=== PATIENT | female | born 1995 | race Hispanic/Latino ===

== ENCOUNTER 2018-04-17 03:01 | Emergency (ER) | payer OTHER ==
[~2018-04-17] VITALS: Ht 157.5 cm; Wt 59.0 kg
[2018-04-17] MEDS ORDERED: DONNATAL/LIDOCAINE/MAALOX 30 ML SUSP PO ONE (03:30)
--- NOTE | 2018-04-17 04:14 | Diagnostic Imaging Report ---
EXAMINATION: CXR 1 VEW - HOPD INDICATION: Chest pressure. COMPARISON: None FINDINGS: AP view TUBES and LINES: None. LUNGS: Lungs are well inflated. Lungs are clear. There is no evidence of pneumonia or pulmonary edema. PLEURA: No pleural effusion or pneumothorax. HEART AND MEDIASTINUM: The cardiomediastinal silhouette is unremarkable. BONES AND SOFT TISSUES: No acute osseous lesion. Soft tissues are unremarkable. UPPER ABDOMEN: No free air under the diaphragm. IMPRESSION: No acute thoracic abnormality. Signed by: DR. Kayden Luz MD on 04/17/2018 4:11 AM
== END 2018-04-17 08:05 | disposition home or self-care (01) ==
LOC: ER 03:01 → FSED 08:05
DX: R07.89 Other chest pain (principal); R06.00 Dyspnea, unspecified
CPT/HCPCS: 71045; 80048; 82553; 84484; 85025; 85379; 93005; 99283

== ENCOUNTER 2018-08-01 22:19 | Emergency (ER) | payer OTHER ==
[~2018-08-01] VITALS: Ht 157.5 cm; Wt 59.0 kg
--- OUTSIDE RECORDS SUMMARY | 2018-08-01 22:25 | XMS REPORT ---
Author Author [facility] Address Unknown Phone Unavailable Care Team Providers Care Truck Unloader Name Role Phone Mellissa GRULLON Unavailable Unavailable Problems This patient has no known problems. Allergies, Adverse Reactions, Alerts This patient has no known allergies or adverse reactions. Medications This patient has no known medications. Results Test Description Test Time Test Comments Text Results Atomic Results Result Comments CXR 1 [facility] 2018-04-17 04:10:00 [facility] [address] [address] Patient Name: DORINDA LOGAN MR #: [id number] : 1995 Age/Sex: 22/F Req #: [id number] [facility] Physician: Ordered by: BIANKA GRULLON MD Report #: [id number] Location: [facility] Room/Bed: Procedure: [id number] HOPD/CXR 1 W - [facility] Exam Date: 04/17/18 Exam Time: 0350 REPORT STATUS: Signed EXAMINATION: CXR 1 W - [facility] INDICATION: Chest pressure. COMPARISON: None FINDINGS: AP view TUBES and LINES: None. LUNGS: Lungs are well inflated. Lungs are clear. There is no evidence of pneumonia or pulmonary edema. PLEURA: No pleural effusion or pneumothorax. HEART AND MEDIASTINUM: The cardiomediastinal silhouette is unremarkable. BONES AND SOFT TISSUES: No acute osseous lesion. Soft tissues are unremarkable. UPPER ABDOMEN: No free air under the diaphragm. IMPRESSION: No acute thoracic abnormality. Signed by: DR. Kayden Luz MD on 04/17/2018 4:11 AM Dictated By: KAYDEN LUZ MD 0 Transcribed By: TESS on 04/17/18410 COPY TO: BIANKA GRULLON MD
[2018-08-02] MEDS ORDERED: ONDANSETRON ODT8 MG PO (00:18)
[2018-08-02] MEDS ORDERED: RANITIDINE HCL150 MG PO (00:20)
[2018-08-02] MEDS ORDERED: MAGNESIUM/ALUMINUM/SIMETHICONE 30 ML UDC PO ONE (00:30)
[2018-08-02] MEDS ORDERED: ONDANSETRON HCL 4 MG ORAL DISINTEGRATING TAB PO ONE (00:30)
== END 2018-08-02 00:30 | disposition home or self-care (01) ==
LOC: FSED 22:19
DX: A08.4 Viral intestinal infection, unspecified (principal); K60.2 Anal fissure, unspecified
CPT/HCPCS: 99283; Q0162